=== PATIENT | male | born 1980 | race Caucasian/White ===

== ENCOUNTER 2022-06-07 17:49 | Inpatient (IN) | payer MEDICAID ==
[~2022-06-07] VITALS: Ht 172.7 cm; Wt 83.9 kg
[2022-06-07 20:12] LABS: BASOPHILS % 0.9 % (0.0-2.0); EOSINOPHILS % 0.3 % (0.0-5.0); HEMATOCRIT. 29.7 % (42.0-52.0); HEMOGLOBIN. 9.8 g/dL (14.0-18.0); LYMPHOCYTES % 16.1 % (20.0-50.0); MEAN CORPUSCULAR HEMOGLOBIN 26.4 pg (28.0-32.0); MEAN CORPUSCULAR VOLUME 80.1 fL (80.0-94.0); MEAN PLATELET VOLUME 6.3 fl (7.4-10.4); MONOCYTES % 9.2 % (2.0-8.0); NEUTROPHILS % 73.5 % (40.0-76.0); PLATELET 350 x1000/uL (130-400); RED BLOOD CELL COUNT 3.71 mill/uL (4.7-6.1); RED CELL DISTRIBUTION WIDTH 21.4 % (11.6-14.6)
[2022-06-07 20:16] LABS: CHLORIDE 103 mEq/L (98-107)
[2022-06-07] MEDS ORDERED: PANTOPRAZOLE SODIUM 40 MG/VIAL IV ONE (20:30)
[2022-06-07] MEDS ORDERED: SODIUM CHLORIDE 0.9% 1,000 ML IV ONE (20:30)
[2022-06-07] MEDS ORDERED: MAGNESIUM/ALUMINUM HYDROXIDE/SIMETHICONE 30ML UDC PO ONE (20:30)
[2022-06-07] MEDS ORDERED: ONDANSETRON HCL 4MG/2ML INJ IV ONE (20:30)
[2022-06-07 20:52] LABS: INR 1.1; PROTHROMBIN TIME 12.2 sec (9.6-11.0)
[2022-06-07 21:34] LABS: CLARITY URINE CLEAR (CLEAR); COLOR URINE YELLOW (YELLOW); KETONES URINE 1+ (NEGATIVE); LEUKOCYTE ESTERASE URINE NEGATIVE (NEGATIVE); NITRITE URINE NEGATIVE (NEGATIVE); OCCULT BLOOD URINE NEGATIVE (NEGATIVE); PH URINE 6.5 (4.5-8.0); PROTEIN URINE NEGATIVE (NEGATIVE); SPECIFIC GRAVITY URINE 1.014 (1.005-1.030); UROBILINOGEN URINE 0.2 E.U./dL (0.2-1.0)
[2022-06-07] MEDS ORDERED: KETOROLAC 30MG/ML VIAL IV NR (22:30)
[2022-06-08] MEDS ORDERED: ONDANSETRON HCL 4MG/2ML INJ IV ONE (00:15)
[2022-06-08] MEDS ORDERED: MORPHINE SULFATE 4 MG/ML CPJ (NOT FOR IM USE) IV ONE (00:15)
[2022-06-08] MEDS ORDERED: DEXT 5%/0.2% NACL KCL 20MEQ/L 1,000 ML IV NR (05:00)
[2022-06-08] MEDS ORDERED: MORPHINE SULFATE 2 MG/ML CPJ (NOT FOR IM USE) IV NR (05:00)
[2022-06-08 07:30] VITALS: BP 130/78
[2022-06-08 08:00] VITALS: BP 136/74
[2022-06-08] MEDS: PANTOPRAZOLE SODIUM 40 MG/VIAL IV SCH (08:56)
[2022-06-08 09:44] LABS: BASOPHILS % 1.1 % (0.0-2.0); EOSINOPHILS % 1.3 % (0.0-5.0); HEMATOCRIT. 28.5 % (42.0-52.0); HEMOGLOBIN. 9.3 g/dL (14.0-18.0); MEAN CORPUSCULAR HEMOGLOBIN 26.3 pg (28.0-32.0); MEAN CORPUSCULAR VOLUME 80.4 fL (80.0-94.0); MEAN PLATELET VOLUME 6.4 fl (7.4-10.4); MONOCYTES % 6.3 % (2.0-8.0); NEUTROPHILS % 80.3 % (40.0-76.0); PLATELET 277 x1000/uL (130-400); RED BLOOD CELL COUNT 3.54 mill/uL (4.7-6.1); RED CELL DISTRIBUTION WIDTH 21.2 % (11.6-14.6)
[2022-06-08 10:09] LABS: AMYLASE 32 IU/L (25-115); CHLORIDE 107 mEq/L (98-107); HDL CHOLESTEROL 44 mg/dL (40-59); LDL CHOLESTEROL 55 mg/dL (5-100)
[2022-06-08] MEDS ORDERED: ONDANSETRON HCL 4MG/2ML INJ IV PRN (11:45)
[2022-06-08 12:00] VITALS: BP 136/79
[2022-06-08] MEDS ORDERED: NALOXONE HCL 0.4MG/ML VIAL IV PRN (14:30)
[2022-06-08] MEDS: KETOROLAC 30MG/ML VIAL IV PRN (15:41)
[2022-06-08 16:00] VITALS: BP 129/60
[2022-06-08] MEDS: ACETAMINOPHEN 650MG/20.3ML UDC PO PRN (17:50)
[2022-06-08 20:00] VITALS: BP 95/47
[2022-06-08] MEDS ORDERED: VANCOMYCIN 1500MG in DEXTROSE 5% WATER 250ML IV NR (21:00)
[2022-06-08] MEDS: SUCRALFATE 1 G/10 ML UDC PO SCH (21:51)
[2022-06-08] MEDS: POTASSIUM CHLORIDE 20MEQ TABLET SR PO SCH ×2 (21:52→23:04)
[2022-06-08] MEDS: HYDROCODONE/ACETAMINOPHEN 5/325MG TABLET PO PRN (21:53)
[2022-06-09] VITALS: BP 122/74
[2022-06-09] MEDS: KETOROLAC 30MG/ML VIAL IV PRN (01:54)
[2022-06-09 03:01] LABS: BASOPHILS % 0.9 % (0.0-2.0); EOSINOPHILS % 0.7 % (0.0-5.0); HEMATOCRIT. 25.8 % (42.0-52.0); HEMOGLOBIN. 8.7 g/dL (14.0-18.0); LYMPHOCYTES % 14.4 % (20.0-50.0); MEAN CORPUSCULAR HEMOGLOBIN 26.4 pg (28.0-32.0); MEAN CORPUSCULAR VOLUME 78.9 fL (80.0-94.0); MEAN PLATELET VOLUME 6.6 fl (7.4-10.4); MONOCYTES % 7.6 % (2.0-8.0); NEUTROPHILS % 76.4 % (40.0-76.0); PLATELET 221 x1000/uL (130-400); RED BLOOD CELL COUNT 3.27 mill/uL (4.7-6.1)
[2022-06-09 03:08] LABS: INR 1.3; PROTHROMBIN TIME 13.3 sec (9.6-11.0)
[2022-06-09 03:17] LABS: CHLORIDE 105 mEq/L (98-107)
[2022-06-09 04:00] VITALS: BP 125/85
[2022-06-09] MEDS: HYDROCODONE/ACETAMINOPHEN 5/325MG TABLET PO PRN (04:20)
[2022-06-09] MEDS: VANCOMYCIN 1G PREMIX 200 ML IV SCH ×3 (05:26→21:04)
[2022-06-09] MEDS ORDERED: POTASSIUM CHLORIDE 20MEQ TABLET SR PO NR (07:00)
[2022-06-09] MEDS: SUCRALFATE 1 G/10 ML UDC PO SCH ×3 (07:20→21:04)
[2022-06-09 08:00] VITALS: BP 139/88
[2022-06-09] MEDS: PANTOPRAZOLE SODIUM 40 MG/VIAL IV SCH ×2 (09:19→21:05)
[2022-06-09] MEDS: HYDROCODONE/ACETAMINOPHEN 10/325MG TABLET PO PRN ×3 (10:25→22:26)
[2022-06-09] MEDS: KCL 20MEQ/100ML PREMIX 100 ML IV SCH ×2 (10:31→12:40)
[2022-06-09 12:00] VITALS: BP 122/84
[2022-06-09 16:00] VITALS: BP 147/91
[2022-06-09 16:01] LABS: *AMPHETAMINES SCREEN URINE NEGATIVE (NEGATIVE); *BARBITURATES SCREEN URINE NEGATIVE (NEGATIVE); *BENZODIAZEPINES SCREEN URINE NEGATIVE (NEGATIVE); *COCAINE SCREEN URINE NEGATIVE (NEGATIVE); CANNABINOID URINE SCREEN PRESUMTIVE POSITIVE (NEGATIVE); METHADONE URINE SCREEN NEGATIVE (NEGATIVE); OPIATES URINE SCREEN PRESUMTIVE POSITIVE (NEGATIVE); PHENCYCLIDINE URINE SCREEN NEGATIVE (NEGATIVE)
[2022-06-09 20:00] VITALS: BP 133/85
[2022-06-10] VITALS: BP 111/59
[2022-06-10] MEDS: DEXT 5%/0.9% NACL KCL 20MEQ/L 1,000 ML IV SCH ×2 (00:02→10:47)
[2022-06-10] MEDS: ACETAMINOPHEN 650MG/20.3ML UDC PO PRN (01:48)
[2022-06-10 03:04] LABS: HEMATOCRIT. 26.5 % (42.0-52.0); HEMOGLOBIN. 8.6 g/dL (14.0-18.0); MEAN CORPUSCULAR HEMOGLOBIN 25.7 pg (28.0-32.0); MEAN CORPUSCULAR VOLUME 79.6 fL (80.0-94.0); MEAN PLATELET VOLUME 6.8 fl (7.4-10.4); PLATELET 202 x1000/uL (130-400); RED BLOOD CELL COUNT 3.33 mill/uL (4.7-6.1); RED CELL DISTRIBUTION WIDTH 21.3 % (11.6-14.6)
[2022-06-10 04:00] VITALS: BP 129/83
[2022-06-10] MEDS: HYDROCODONE/ACETAMINOPHEN 10/325MG TABLET PO PRN ×2 (04:39→10:42)
[2022-06-10] MEDS: VANCOMYCIN 1G PREMIX 200 ML IV SCH (06:27)
[2022-06-10] MEDS: SUCRALFATE 1 G/10 ML UDC PO SCH ×2 (06:27→10:47)
[2022-06-10] MEDS ORDERED: SULF1TAB48 MT (07:31)
[2022-06-10] MEDS ORDERED: OMEP40CA20 MT (07:31)
[2022-06-10] MEDS ORDERED: AMOX1TAB16 MT (07:31)
[2022-06-10 08:00] VITALS: BP 132/89
[2022-06-10 08:14] LABS: CHLORIDE 107 mEq/L (98-107)
[2022-06-10] MEDS: PANTOPRAZOLE SODIUM 40 MG/VIAL IV SCH (08:26)
[2022-06-10] MEDS: KETOROLAC 30MG/ML VIAL IV PRN (08:29)
[2022-06-10 09:18] LABS: PLATELET ESTIMATE NORMAL
[2022-06-10] MEDS ORDERED: CEFTRIAXONE 1,000 MG in DEXTROSE 5% WATER 50 ML IV SCH (10:00)
[2022-06-10] MEDS ORDERED: MIDAZOLAM HCL 2 MG/2 ML VIAL ONE (11:20)
[2022-06-10] MEDS ORDERED: DEXAMETHASONE 4MG/ML 1ML VIAL ONE (11:20)
[2022-06-10] MEDS ORDERED: ONDANSETRON HCL 4MG/2ML INJ ONE (11:20)
[2022-06-10] MEDS ORDERED: PROPOFOL 200MG/20ML VIAL IV ONE (11:21)
[2022-06-10] MEDS ORDERED: FENTANYL CITRATE/PF 50MCG/ML 2ML VIAL ONE (11:24)
[2022-06-10] MEDS ORDERED: SUCR1TAB30 MT (15:31)
[2022-06-10 15:36] VITALS: BP 132/89
[2022-06-10] MEDS ORDERED: VANCOMYCIN 1.25GM PMX (XELLIA) 250 ML IV SCH (18:00)
== END 2022-06-10 16:13 | disposition home or self-care (01) | DRG 241 ==
LOC: ER 17:49 → 6EST 06-08 02:00 → EDBEDREQ 06-08 02:04 → EDBEDREQTM 06-08 02:04
PROVIDERS: ADMIT Internal Medicine; ATTEND Internal Medicine
PROC: 0DB78ZX Excision of Stomach, Pylorus, Via Natural or Artificial Opening Endoscopic, Diagnostic (ICD-10-PCS; principal; 2022-06-10)
DX: K29.71 Gastritis, unspecified, with bleeding (principal); K85.90 Acute pancreatitis without necrosis or infection, unspecified; E44.0 Moderate protein-calorie malnutrition; K40.20 Bilateral inguinal hernia, without obstruction or gangrene, not specified as recurrent; L03.116 Cellulitis of left lower limb; L03.115 Cellulitis of right lower limb; D64.9 Anemia, unspecified; E87.6 Hypokalemia; Z68.28 Body mass index [BMI] 28.0-28.9, adult; K20.90 Esophagitis, unspecified without bleeding; K21.9 Gastro-esophageal reflux disease without esophagitis; I10 Essential (primary) hypertension; K44.9 Diaphragmatic hernia without obstruction or gangrene; K57.30 Diverticulosis of large intestine without perforation or abscess without bleeding; N20.0 Calculus of kidney; Z20.822 Contact with and (suspected) exposure to COVID-19; K40.90 Unilateral inguinal hernia, without obstruction or gangrene, not specified as recurrent
CPT/HCPCS: 36415; 74176; 80048; 80053; 80061; 80202; 80305; 81003; 82150; 83036; 83735; 84132; 85025; 87426; 93970; 99285; C9113; J0696; J1100; J1885; J2250; J2270; J2405; J2704; J3010; J3370; J3480; J7030; J7060